=== PATIENT | female | born 1975 | race African-American/Black ===

== ENCOUNTER 2025-01-02 20:38 | Emergency (ER) | payer SELFPAY ==
[~2025-01-02] VITALS: Ht 157.5 cm; Wt 59.0 kg
[2025-01-02 23:00] VITALS: BP 118/69
[2025-01-03] MEDS ORDERED: NEOMY/BACITRA/POLYMYXIN B OINT UD PACKET TP ONE (00:29)
[2025-01-03 00:49] VITALS: BP 121/72; TEMP 98.1; O2SAT 99
[2025-01-03] MEDS: NEOMY/BACITRA/POLYMYXIN B OINT UD PACKET TP ONE (00:57)
== END 2025-01-03 01:04 | disposition home or self-care (01) ==
LOC: ER 20:40
DX: S90.211A Contusion of right great toe with damage to nail, initial encounter (principal); M19.079 Primary osteoarthritis, unspecified ankle and foot; Z88.1 Allergy status to other antibiotic agents; W22.09XA Striking against other stationary object, initial encounter; Y99.9 Unspecified external cause status; Y92.832 Beach as the place of occurrence of the external cause; Y93.01 Activity, walking, marching and hiking
CPT/HCPCS: 73660; A4606; A4663